=== PATIENT | female | born 1945 | race Caucasian/White ===

== ENCOUNTER 2018-04-14 06:24 | Day surgery (SDC) | payer MEDICARE ==
[2018-04-11 15:24] LABS: Urine Appearance CLOUDY; Urine Bilirubin NEGATIVE (NEG); Urine Blood NEGATIVE (NEG); Urine Color YELLOW; Urine Glucose NEGATIVE (NEG); Urine Protein NEGATIVE (NEG); Urine Urobilinogen 0.2 mg/dL (0.2-1.0); Urine pH 5.5 (5.0-7.0)
[2018-04-11 15:36] LABS: Urine Microscopic Reflex ORDER UMIC
[2018-04-11 15:49] LABS: Absolute Lymphocytes (CBC) 0.8 K/uL (0.7-4.9); Absolute Monocytes 0.5 K/uL (0.1-1.3); Absolute Neutrophil 3.4 K/uL (1.8-8.0); Basophils % 0.7 % (0-1.3); Eosinophils % 3.6 % (0-4.4); Hematocrit 41.3 % (36.0-45.0); Lymphocytes % 17.3 % (15.3-44.8); MPV 9.3 fL (7.6-11.3); Monocytes % 9.5 % (3.3-12.3); RBC Red Blood Cell Count 4.48 M/uL (3.86-4.86)
[2018-04-11 15:53] LABS: Protime INR 1.05
[2018-04-11 16:32] LABS: Urine Bacteria 20-50 /HPF (<20); Urine Culture Reflex Order REFLEXED; Urine RBC <5 /HPF (NONE SEEN)
[2018-04-14] MEDS ORDERED: Ringers Lactate 1,000 ML IV ONE ×2 (06:41→10:12)
[2018-04-14] MEDS ORDERED: SCOPOLAMINE HYDROBROMIDE PATCH TD ONE (06:41)
[2018-04-14] MEDS ORDERED: LIDOCAINE 1% MPF 5 ML VIAL ONE (06:55)
[2018-04-14] MEDS ORDERED: NA CHLORIDE 0.9% 100 ML IV ONE (07:08)
[2018-04-14] MEDS ORDERED: PROPOFOL 200 MG/20 ML VIAL IV ONE (07:08)
[2018-04-14] MEDS ORDERED: NA CHLORIDE 0.9% 1,000 ML ONE (07:08)
[2018-04-14] MEDS ORDERED: CEFAZOLIN SODIUM 1 GM/VIAL ONE ×2 (07:09→10:58)
[2018-04-14] MEDS ORDERED: ROCURONIUM 50 MG/5 ML VIAL IV ONE (07:09)
[2018-04-14] MEDS ORDERED: LIDOCAINE 2% MPF 5 ML VIAL ONE (07:09)
[2018-04-14] MEDS ORDERED: VASOPRESSIN 20 UNIT/ML VIAL ONE (07:09)
[2018-04-14] MEDS ORDERED: FENTANYL CITR 250 MCG/5 ML ONE (07:10)
[2018-04-14] MEDS ORDERED: ONDANSETRON 4 MG/2 ML VIAL ONE ×2 (07:12→10:58)
[2018-04-14] MEDS: CEFAZOLIN/SWI 1gm 2 GM/20 ML SYR ONE ×3 (07:16→07:31)
[2018-04-14] MEDS ORDERED: EPHEDRINE SULF 50 MG/ML VIAL ONE (07:58)
[2018-04-14] MEDS ORDERED: LIDOCAINE 1.5% W/EPI AMP 5 ML ONE (08:08)
[2018-04-14] MEDS ORDERED: GLYCOPYRROLATE 0.2 MG/ML SYR ONE ×2 (08:22→08:23)
[2018-04-14] MEDS ORDERED: NEOSTIGMINE 1 MG/ML -10 ML VIAL ONE (10:56)
[2018-04-14] MEDS ORDERED: HYDROMORPHONE HCL 1 MG/ML INJ IV PRN (11:48)
[2018-04-14] MEDS ORDERED: ACETAMINOPHEN 500 MG TAB PO PRN (11:48)
[2018-04-14] MEDS ORDERED: PROMETHAZINE 25 MG/ML VIAL IV PRN (11:48)
--- NOTE | 2018-04-14 12:00 | P.BOP ---
Preoperative diagnosis: stg 3 Incomplete uterovag prolapse/post enterocele/ rectocele/occult MITCHELL Postoperative diagnosis: perineocele Primary procedure: ant repair arden SSLF colpopexy w Uphold/post enterocele/ rectocele repair Secondary procedure: perineorrhaphy, TVT-O cysto Manager College: [employer] Estimated blood loss: 100 Specimen: none Findings: 0/+3/+5/6/thin/7/0/+3/+4 Anesthesia: General Complications: None Drain(s): Urinary catheter Implants: uphold, tvt-o Fluids & blood products: none Transferred to: Recovery Room Condition: Good
[2018-04-14 12:20] VITALS: O2SAT 96
[2018-04-14 13:31] VITALS: BMI 27.4
[2018-04-14] MEDS: Ringers Lactate 1,000 ML IV SCH (16:36)
[2018-04-15] MEDS: Ringers Lactate 1,000 ML IV SCH (00:10)
[2018-04-15] MEDS ORDERED: LEVOTHYROXINE SOD 0.1 MG TAB PO SCH (06:00)
[2018-04-15 06:36] LABS: Absolute Lymphocytes (CBC) 0.7 K/uL (0.7-4.9); Absolute Monocytes 0.6 K/uL (0.1-1.3); Basophils % 0.3 % (0-1.3); Eosinophils % 0.5 % (0-4.4); Hematocrit 37.5 % (36.0-45.0); Lymphocytes % 9.5 % (15.3-44.8); MPV 9.2 fL (7.6-11.3); Monocytes % 8.4 % (3.3-12.3); RBC Red Blood Cell Count 4.11 M/uL (3.86-4.86)
[2018-04-15 07:51] VITALS: BP 117/76
--- NOTE | 2018-04-15 08:03 | OP ---
Date of Procedure: 04/14/2018 Surgeon: Jaclyn Navarro MD Preoperative Diagnoses: Stage III anterior wall prolapse, apical level 1 prolapse. There is no sign ificant defect, rectocele, occult stress urinary incontinence. Postoperative Diagnoses: Stage III anterior wall prolapse, apical level 1 prolapse. There is no sig nificant defect, rectocele, occult stress urinary incontinence, posterior enterocele. Anesthesia: General anesthesia with LMA. Specimens: None. Complications: None. Procedures Performed: 1.Anterior repair with synthetic graft augmentation with Uphold mesh. 2.Bilateral sacrospinous ligament fixation colpopexy with the same. 3.Posterior enterocele repair and perineal body repair (perineorrhaphy). 4.Mid urethral sling and cystoscopy. TVT-O was placed. Findings: POP-Q is 0, +3, +5, 6 cm, then 7 to 8 cm; 0, +3, +4. The patient with significant level 1 prolapse. The uterus small, vaginal lining moderate. After repair, point BA was -3, point C was at -7. At the end of the case, the patient had a small hematoma collected underneath the graft and the anterior wall closure. The patient had a cystoscopy that was performed and the procedure showed normal patent bilateral uret ers. No evidence of foreign body or suture was seen. Right above the trigone, there was a small area that appeared to be slightly with defect which appear ed to be the closure of the bladder with a 3-0 Vicryl pursestring to reduce the bladder, but no evide nce of any diverticula or any other concerning bladder findings. The patient is a 72-year-old patient seen for vaginal bulge symptoms, referred by her primary care. She had a full evaluation in the office. Discussed about pessary and surgery. All the surgery mater ials were reviewed with the patient including graft augmentation materials, biologic and synthetic darya th. Abdominal and vaginal surgeries both discussed after the patient declined the use of pessary. Description Of Procedure: Cystoscopy was performed and only trabeculations were seen. The patient w as kept on trimethoprim as a prophylactic antibiotic. She went on to have urodynamic studies and that showed low midurethral closure pressure, so mid ureth ral sling given the fact that her point AA was significantly displaced. The patient was counseled th at if she had prolapse or eruption that she could potentially have overt stress urinary incontinence. Once the patient was counseled, she preferred to have the sling placed, so we discussed about the t ransobturator sling and this was planned. After the patient was given 2 g of Ancef, she was brought back to the OR, placed in a supine fashion on the operating table. After general anesthesia was given, she was placed in dorsal lithotomy posit ion using Anil stirrups. Positioning was checked. Arms were laid on the side boards. After the lo wer abdomen, vulva, vagina, and perineum were prepped and draped in a sterile fashion, Bhagat was plac ed to drain the bladder and clamped with a Joy and retracted superiorly. The anterior vaginal wall was grasped with 2 Allis' in the midline, right above the level of the cervix and right below the ur ethrovesical junction. Then, dilute vasopressin 20 units in 50 cc of normal saline was taken. This is injected in the midline and off to the sides at a depth that would pass the endopelvic fascia. On ce this was done, a 15 blade was used to make an incision. This incision was extended superiorly and inferiorly with the Metzenbaum scissors and laterally dissection was performed taking the bladder of f the endopelvic fascia and the vaginal epithelium and subepithelium. This was done till I got to th e sulci on both sides. The paravaginal space was entered. Then pararectal space was entered. Ischi al spine was palpated and sacrospinous ligament cleaned up on the right side, then on the left side, without any problems. Then, I went ahead and dissected the bladder off the cervix and the bladder al l the way close to the level of the bladder neck. Here at the bladder neck, two plication 3-0 Vicryl sutures were placed to bring the lateral fascia together and buttressed in the midline. Then, the U phold was taken. The arms were placed 2 cm medial and posterior to the ischial spine on the sacrospi nous ligament, first on the left side and then on the right side, without any problems, but two passe s were taken on the left side. So, the first bite was flimsy bite into the ligament. Once there was excellent placement, the proximal part of the graft was attached to the cervix with a central 2-0 PD S and then 2 lateral PDS sutures. Then, the distal-most part of the graft was sutured here on to the Joy plication stitches with 3-0 Vicryl. This was laid out flat. Then, the vaginal closure was pe rformed by placing another suture bringing the subcutaneous tissues together right on top of the ernst t incision to avoid exposure, and the vaginal epithelium was not trimmed and closed out with a 2-0 Vi cryl in a continuous running locked fashion till the complete tension was done, and there was excelle nt support. This was the end of the procedure for the anterior repair. Cystoscopy was performed wit h a 17-Greenlandic sheath, 30-degree lens, and normal saline. There were excellent streams of urine from both ureteric orifices. No foreign body in the bladder. The scope was removed. Bhagat was replaced. The perineorrhaphy was done. Rectocele repair and perineorrhaphy incisions were made. First, triangular incision on the perineum going all the way from one side of the defect to the other. The perineal body had been disrupted, an d there was no evidence of any reconnection there. Getting access to the posterior compartment from here, dissection was carried all the way to the apex keeping away 2 cm short of the apex. Then, the perineal body was dissected. The posterior midline wall was opened up and the rectovaginal septum wa s from the subepithelium and epithelium, and this was taken down and retracted all the way to the lateral sulci and then all the way to the apex where there the enterocele was isolated and it was closed with the help of a pursestring 3-0 Vicryl suture x2. Once this was nicely held together, then sutures were placed to bring the tissue back together. Three plicating sutures were placed from [id number] in the midline posterior to bring the rectovaginal septum tissues together. Then fiona ing of the vaginal epithelium was done, half a centimeter on both sides. The perineal body was clear ly dissected out at the level of the vestibule. The Bartholin's glands were unremarkable. The closu re was done with the help of interrupted 2-0 Vicryl sutures x3 on layer #1, then layer #2 was placed where three more sutures were placed. Then, 3-0 Vicryl suture was taken from the inferior most part of the apical part of the incision to do a subcutaneous closure all the way to the level of the perin eum and vestibule. The fascia was closed with the help of 2-0 Vicryl in a continuous running locked fashion. Rectal exam was performed. No evidence of any injury here. The Bhagat was removed. Cystos copy was performed after the sling was done. Mid urethral area was injected with dilute vasopressin on both sides. After the 15 blade was used to make a 1 cm incision, dissection was carried down with the tip of the Metzenbaum scissors to get up there and perforate the obturator membrane. Once this was perforated, they were taken down both sides and the wing guides were placed easily. The spikes w ere passed through the same incision and came out of the exit points marked for the exit of the spike s, 2 cm lateral and 1 cm above the horizontal plane. The wing guide was passed through the same trac k. Then, the spike was passed at a 40 degree angle to the ipsilateral shoulder, hugging the inferior pubic ramus. The spike was passed on top of the wing guide and pulled out of the exit point exactly marked on the right and then left. The sling was tensioned with the help of Metzenbaum scissors und er the urethra. The closure here was 3-0 Vicryl in a continuous running locked fashion. Bhagat was r emoved. Cystoscopy was performed. No evidence of any trauma to the urethra, bladder, or ureters. N o foreign body in the bladder. The bladder was drained. Instrument, needle, and sponge counts x3 we re done and were correct at the end of the case. The patient tolerated the procedure well and she wi ll follow up with me in 1 week. WALTER/LEVI Voice ID: [id number] Report ID: [id number]
[2018-04-15 08:16] VITALS: TEMP 97.8
[2018-04-15] MEDS ORDERED: TRIMETHOPRIM 100 MG PO SCH (09:00)
[2018-04-15] MEDS ORDERED: LISINOPRIL 10 MG TAB PO SCH (09:00)
== END 2018-04-15 12:30 | disposition home or self-care (01) ==
LOC: OR 06:24 → 2ND-WC 11:55 → OR 04-15 12:30
PROVIDERS: ATTEND Obstetrics & Gynecology
PROC: 0JUC0JZ Supplement of Pelvic Region Subcutaneous Tissue and Fascia with Synthetic Substitute, Open Approach (ICD-10-PCS; 2018-04-14)
PROC: 0JQC0ZZ Repair Pelvic Region Subcutaneous Tissue and Fascia, Open Approach (ICD-10-PCS; 2018-04-14)
PROC: 0WQNXZZ Repair Female Perineum, External Approach (ICD-10-PCS; 2018-04-14)
PROC: 0TSD0ZZ Reposition Urethra, Open Approach (ICD-10-PCS; 2018-04-14)
PROC: 0USG7ZZ Reposition Vagina, Via Natural or Artificial Opening (ICD-10-PCS; 2018-04-14)
PROC: 0UQF0ZZ Repair Cul-de-sac, Open Approach (ICD-10-PCS; principal; 2018-04-14 07:30)
DX: N81.2 Incomplete uterovaginal prolapse (principal); N39.3 Stress incontinence (female) (male); N81.81 Perineocele; I10 Essential (primary) hypertension; E05.90 Thyrotoxicosis, unspecified without thyrotoxic crisis or storm; Z88.2 Allergy status to sulfonamides
CPT/HCPCS: 57265; 57267; 57288; 57282; 87088; 85025 ×2; 87086; 80048; 36415 ×2; 86900; 86850; 85610; 86901; 85730; J2704; J2710; J2550 ×2; J3010; J1170; J0690 ×3; J7030; J2405 ×2; 81003; 81015; J2001

== ENCOUNTER 2019-09-11 09:54 | Observation (INO) | payer MEDICARE, OTHER ==
[2019-09-11 10:51] LABS: Absolute Lymphocytes (CBC) 0.8 K/uL (0.7-4.9); Basophils % 0.7 % (0-1.3); Hematocrit 41.5 % (36.0-45.0); Lymphocytes % 19.3 % (15.3-44.8); MPV 9.2 fL (7.6-11.3); RBC Red Blood Cell Count 4.59 M/uL (3.86-4.86)
[2019-09-11] MEDS ORDERED: ASPIRIN 81 MG CHEWABLE TABLET ONE (11:10)
[2019-09-11 11:13] LABS: BUN Blood Urea Nitrogen 15 mg/dL (7-18); Bicarbonate 29 mmol/L (21-32); Glucose Level 107 mg/dL (74-106); Magnesium 2.3 mg/dL (1.8-2.4); NT PRO-BNP 80 pg/mL (<450); Potassium 3.9 mmol/L (3.5-5.1); Sodium Level 145 mmol/L (136-145); Troponin (Emerg Dept Use Only) < 0.02 ng/mL (0.0-0.045)
[2019-09-11] MEDS ORDERED: DILTIAZEM HCL 60 MG TAB PO ONE (11:15)
--- NOTE | 2019-09-11 11:39 | EDPHYS ---
Physician Documentation [facility] Name: Marylou Bonilla Age: 73 yrs Sex: Female : 1945 Arrival Date: 09/11/2019 Time: 10:02 Bed 8 Private MD: ED Physician Eze Zavala HPI: 09/10 10:15 This 73 yrs old Female presents to ER via EMS with complaints of palpitations.rn 10:15 The patient presents with a history of heart racing. Onset: The symptoms/episode rn began/occurred this morning. Modifying factors: The symptoms are aggravated by exertion. Associated signs and symptoms: Pertinent positives: lightheadedness, Pertinent negatives: chest pain. Severity of symptoms: At their worst the symptoms were moderate in the emergency department the symptoms have improved. The patient has not experienced similar symptoms in the past. Reports woke up to use bathroom, felt palpitations, fine last night when went to bed, no fever/chest pain/syncope, + lightheaded. Never happened before, no recent medication changes. . Historical: - Allergies: 10:12 No Known Allergies; ph - PMHx: 10:12 Hypertension; Hypothyroidism; ph - PSHx: 10:12 Cholecystectomy; ph - Immunization history:: Adult Immunizations unknown. - Family history:: not pertinent. - Social history:: Smoking status: Patient denies any tobacco usage or history of. - Hospitalizations: : No recent hospitalization is reported. ROS: 10:15 Constitutional: Negative for fever, chills, and weight loss, Eyes: Negative for injury, rn pain, redness, and discharge, Neck: Negative for injury, pain, and swelling, Cardiovascular: Negative for chest pain and edema, Respiratory: Negative for shortness of breath, cough, wheezing, and pleuritic chest pain, Abdomen/GI: Negative for abdominal pain, nausea, vomiting, diarrhea, and constipation, MS/Extremity: Negative for injury and deformity, Skin: Negative for injury, rash, and discoloration, Neuro: Negative for headache, weakness, numbness, tingling, and seizure. Exam: 10:15 Constitutional: This is a well developed, well nourished patient who is awake, alert, rn and in no acute distress. Head/Face: Normocephalic, atraumatic. Eyes: Pupils equal round and reactive to light, extra-ocular motions intact. Lids and lashes normal. Conjunctiva and sclera are non-icteric and not injected. Cornea within normal limits. Periorbital areas with no swelling, redness, or edema. Cardiovascular: Tachycardic, irregular Respiratory: speaking full sentences. No increased work of breathing, no retractions or nasal flaring. Abdomen/GI: soft, non-tender MS/ Extremity: Pulses equal, no cyanosis. Neuro: Awake and alert, GCS 15, oriented to person, place, time, and situation. Cranial nerves II-XII grossly intact. Motor strength 5/5 in all extremities. Sensory grossly intact. Cerebellar exam normal. Normal gait. 14:05 ECG was reviewed by the Attending Physician. rn Vital Signs: 10:06 BP 128 / 108; Pulse 157; Resp 18; Temp 97.7; Pulse Ox 96% on R/A; ph 10:11 Pulse 84; ph 10:47 BP 132 / 75; Pulse 67; Resp 15; Temp 97.5(TE); Pulse Ox 97% on R/A; mh5 11:30 BP 138 / 78; Pulse 62; Resp 18; Pulse Ox 99% on R/A; ph 12:32 BP 137 / 72; Pulse 58; Resp 18; Pulse Ox 98% on R/A; ph 13:00 BP 175 / 77; Pulse 83; Resp 15; Pulse Ox 98% ; sv 13:45 BP 143 / 73; Pulse 59; Resp 13; Pulse Ox 95% ; sv 14:56 BP 136 / 59; Pulse 58; Resp 18; Temp 97.8; Pulse Ox 96% on R/A; ph MDM: 10:03 Patient medically screened. rn 11:37 Differential diagnosis: arrythmia, dehydration, stress disorder, new onset afib. Data rn reviewed: vital signs, nurses notes, lab test result(s), EKG, radiologic studies, and as a result, I will admit patient. Counseling: I had a detailed discussion with the patient and/or guardian regarding: the historical points, exam findings, and any diagnostic results supporting the discharge/admit diagnosis, lab results, radiology results, the need for further work-up and treatment in the hospital. Admission orders: after a detailed discussion of the patient's condition and case, the admit orders are written by me. ED course: Pt with new onset afib, converted to sinus after single diltiazem dose, followed by PO, admitted to Dr. Melendrez for new onset afib and workup with cardiology consult. . 09/10 10:03 Order name: Basic Metabolic Panel; Complete Time: 11:35 rn 09/10 10:03 Order name: CBC with Diff; Complete Time: 11:00 rn 09/10 10:03 Order name: Magnesium; Complete Time: 11:35 rn 09/10 10:03 Order name: NT PRO-BNP; Complete Time: 11:35 rn 09/10 10:03 Order name: Troponin (emerg Dept Use Only); Complete Time: 11:35 rn 09/10 10:04 Order name: TSH; Complete Time: 11:35 rn 09/10 10:04 Order name: T4 Free; Complete Time: 11:35 rn 09/10 13:06 Order name: CKMB Creatine Kinase MB [facility] 09/10 13:06 Order name: CKMB Creatine Kinase MB [facility] 09/10 13:06 Order name: CKMB Creatine Kinase MB [facility] 09/10 13:06 Order name: CKMB Creatine Kinase MB [facility] 09/10 13:06 Order name: Comprehensive Metabolic Panel [facility] 09/10 13:07 Order name: Comprehensive Metabolic Panel [facility] 09/10 13:07 Order name: Creatine Phosphokinase [facility] 09/10 10:03 Order name: XRAY Chest (1 view); Complete Time: 12:09 rn 09/10 10:03 Order name: EKG; Complete Time: 10:04 09/10 12:25 Order name: Diet Regular; Complete Time: 12:25 09/10 13:06 Order name: Heart Healthy [facility] 09/10 13:07 Order name: Creatine Phosphokinase [facility] 09/10 13:07 Order name: Creatine Phosphokinase [facility] 09/10 13:07 Order name: Creatine Phosphokinase [facility] 09/10 13:07 Order name: Lipid Profile [facility] 09/10 13:07 Order name: Lipid Profile [facility] 09/10 13:07 Order name: CONS Physician Consult [facility] 09/10 13:07 Order name: Thyroid Stimulating Hormone [facility] 09/10 13:07 Order name: Troponin I [facility] 09/10 13:07 Order name: Troponin I [facility] 09/10 13:07 Order name: Echo with Doppler [facility] 09/10 10:03 Order name: Cardiac monitoring; Complete Time: 10:45 rn 09/10 10:04 Order name: EKG - Nurse/Tech; Complete Time: 10:45 rn 09/10 10:04 Order name: IV Saline Lock; Complete Time: 10:23 rn 09/10 10:04 Order name: Labs collected and sent; Complete Time: 10:45 rn 09/10 10:04 Order name: O2 Per Protocol; Complete Time: 12:50 rn 09/10 10:04 Order name: O2 Sat Monitoring; Complete Time: 12:50 rn EC:05 Rate is 64 beats/min. Rhythm is regular. QRS [place] is Normal. ME interval is normal. QRS rn interval is normal. QT interval is normal. No Q waves. T waves are Normal. No ST changes noted. Clinical impression: Normal ECG. Interpreted by me. Reviewed by me. Administered Medications: 11:20 Drug: Aspirin 81 mg Route: PO; ph 12:50 Follow up: Response: No adverse reaction ph 12:15 Drug: Diltiazem 30 mg Route: PO; ph 12:50 Follow up: Response: No adverse reaction ph Disposition: 09/11/19 11:38 Hospitalization ordered by Gallo Melendrez for Inpatient Admission. Preliminary diagnosis is Unspecified atrial fibrillation. - Bed requested for Telemetry/MedSurg (Inpatient). - Status is Inpatient Admission. ph - Condition is Stable. - Problem is new. - Symptoms have improved. Signatures: Dispatcher [employer] EDID Cynthia Godwin RN RN dw Nieto, Roman, MD MD rn Hall, Patricia, RN RN ph Corrections: (The following items were deleted from the chart) 14:19 11:38 Hospitalization Ordered by Gallo Melendrez MD for Inpatient Admission. Preliminary dw diagnosis is Unspecified atrial fibrillation. Bed requested for Telemetry/MedSurg (Inpatient). Status is Inpatient Admission. Condition is Stable. Problem is new. Symptoms have improved. rn 16:00 14:19 09/11/2019 11:38 Hospitalization Ordered by Gallo Melendrez MD for Inpatient ph Admission. Preliminary diagnosis is Unspecified atrial fibrillation. Bed requested for Telemetry/MedSurg (Inpatient). Status is Inpatient Admission. Condition is Stable. Problem is new. Symptoms have improved. dw
--- NOTE | 2019-09-11 11:39 | ER ---
Nurse's Notes [facility] Name: Marylou Bonilla Age: 73 yrs Sex: Female : 1945 Arrival Date: 09/11/2019 Time: 10:02 Bed 8 Private MD: Diagnosis: Unspecified atrial fibrillation Presentation: 09/10 10:06 Chief complaint: EMS states: Pt c/o palpitations, initial rhythm A-fib/A-flutter w/ ph rate in 160s, BP stable, 18 G IV established, 12.5 Cardizem administered, rhythm changed to A-fib w/ rate 130s to 140s, BP 140/72, pt courtney chest pain or SOB, no hx of a-fib. Coronavirus screen: Patient denies a cough. Patient denies shortness of breath or difficulty breathing. Patient denies measured and/or subjective temperature greater than 100.4F prior to today's visit. Patient denies travel on a cruise ship or to a country the [facility] currently lists as an affected area. Patient denies contact with known and/or suspected case of COVID-19. Ebola Screen: No symptoms or risks identified at this time. Initial Sepsis Screen: Does the patient meet any 2 criteria? No. Patient's initial sepsis screen is negative. Does the patient have a suspected source of infection? No. Patient's initial sepsis screen is negative. Risk Assessment: Do you want to hurt yourself or someone else? Patient reports no desire to harm self or others. Onset of symptoms was September 11, 2019. 10:06 Method Of Arrival: EMS ph 10:06 Acuity: PIERO 2 ph Historical: - Allergies: 10:12 No Known Allergies; ph - PMHx: 10:12 Hypertension; Hypothyroidism; ph - PSHx: 10:12 Cholecystectomy; ph - Immunization history:: Adult Immunizations unknown. - Family history:: not pertinent. - Social history:: Smoking status: Patient denies any tobacco usage or history of. - Hospitalizations: : No recent hospitalization is reported. Screenin:11 Abuse screen: Denies threats or abuse. Denies injuries from another. Nutritional ph screening: No deficits noted. Tuberculosis screening: No symptoms or risk factors identified. Fall Risk None identified. Assessment: 10:15 General: Appears in no apparent distress. comfortable, well groomed, Behavior is calm, ph cooperative, appropriate for age, Denies fever, feeling ill. Pain: Denies pain. Neuro: Level of Consciousness is awake, alert, obeys commands, Oriented to person, place, time, situation, Denies weakness dizziness. Cardiovascular: Reports palpitations, MASSAGE COORDINATOR, denies at this time, HR now 78 bpm Denies chest pain, lightheadedness, nausea, shortness of breath, Capillary refill < 3 seconds in bilateral fingers Patient's skin is warm and dry. Respiratory: Airway is patent Respiratory effort is even, unlabored, Respiratory pattern is regular, symmetrical. GI: No signs and/or symptoms were reported involving the gastrointestinal system. Derm: Skin is intact, is healthy with good turgor, Skin is clammy. 11:30 Reassessment: Patient appears in no apparent distress at this time. Patient and/or ph family updated on plan of care and expected duration. Pain level reassessed. Patient is alert, oriented x 3, equal unlabored respirations, skin warm/dry/pink. 12:20 Reassessment: Patient appears in no apparent distress at this time. Patient and/or ph family updated on plan of care and expected duration. Pain level reassessed. Patient is alert, oriented x 3, equal unlabored respirations, skin warm/dry/pink. Hospitalist at bedside. 13:30 Reassessment: Patient appears in no apparent distress at this time. Patient and/or ph family updated on plan of care and expected duration. Pain level reassessed. Patient is alert, oriented x 3, equal unlabored respirations, skin warm/dry/pink. 14:45 Reassessment: Patient appears in no apparent distress at this time. Patient and/or ph family updated on plan of care and expected duration. Pain level reassessed. Patient is alert, oriented x 3, equal unlabored respirations, skin warm/dry/pink. Attempted to call report to 2nd floor, placed on hold > 5 min. Vital Signs: 10:06 BP 128 / 108; Pulse 157; Resp 18; Temp 97.7; Pulse Ox 96% on R/A; ph 10:11 Pulse 84; ph 10:47 BP 132 / 75; Pulse 67; Resp 15; Temp 97.5(TE); Pulse Ox 97% on R/A; 5 11:30 BP 138 / 78; Pulse 62; Resp 18; Pulse Ox 99% on R/A; ph 12:32 BP 137 / 72; Pulse 58; Resp 18; Pulse Ox 98% on R/A; ph 13:00 BP 175 / 77; Pulse 83; Resp 15; Pulse Ox 98% ; sv 13:45 BP 143 / 73; Pulse 59; Resp 13; Pulse Ox 95% ; sv 14:56 BP 136 / 59; Pulse 58; Resp 18; Temp 97.8; Pulse Ox 96% on R/A; ph ED Course: 10:02 Patient arrived in ED. rn 10:03 Eze Zavala MD is Attending Physician. rn 10:06 Rylie Curtis, VICKIE is Primary Nurse. ph 10:11 Triage completed. ph 10:12 Patient has correct armband on for positive identification. Placed in gown. Bed in low ph position. Call light in reach. Side rails up X2. vehicle monitor technician on. Pulse ox on. NIBP on. Door closed. Noise minimized. Warm blanket given. 10:13 Arm band placed on Patient placed in an exam room, on a stretcher, on vehicle monitor technician, ph on pulse oximetry. 10:44 XRAY Chest (1 view) In Process Unspecified. EDMS 10:44 T4 Free Sent. mh5 10:44 TSH Sent. mh5 10:44 Basic Metabolic Panel Sent. mh5 10:44 CBC with Diff Sent. mh5 10:44 Magnesium Sent. mh5 10:45 NT PRO-BNP Sent. mh5 10:45 Troponin (emerg Dept Use Only) Sent. mh5 10:46 Initial lab(s) drawn, by ma, sent to lab. Maintain EMS IV. Dressing intact. mh5 11:38 Gallo Melendrez MD is Hospitalizing Provider. rn 14:53 Patient admitted, IV remains in place. ph 14:54 No provider procedures requiring assistance completed. ph Administered Medications: 11:20 Drug: Aspirin 81 mg Route: PO; ph 12:50 Follow up: Response: No adverse reaction ph 12:15 Drug: Diltiazem 30 mg Route: PO; ph 12:50 Follow up: Response: No adverse reaction ph Outcome: 11:38 Decision to Hospitalize by Provider. rn 14:57 Admitted to Tele accompanied by tech, via wheelchair, room 222. ph 14:57 Condition: stable 14:57 Instructed on the need for admit. 16:00 Patient left the ED. ph Signatures: Dispatcher [employer] Rossana Schaffer RN RN sv Nieto, Roman, MD MD rn Hall, Patricia, RN RN ph Martinez, Maria [facility]
--- NOTE | 2019-09-11 11:52 | RAD REPORT ---
EXAM DESCRIPTION: Marcus Single View09/11/2019 10:44 am CLINICAL HISTORY: Palpitations COMPARISON: 2007 FINDINGS: The lungs appear clear of acute infiltrate. The heart is normal size Scoliosis is again demonstrated IMPRESSION: No acute abnormalities displayed
[2019-09-11] MEDS ORDERED: ONDANSETRON 4 MG/2 ML VIAL IV PRN (13:02)
[2019-09-11] MEDS ORDERED: ACETAMINOPHEN 500 MG TAB PO PRN (13:02)
--- NOTE | 2019-09-11 13:02 | P.HP ---
Certification for Inpatient Patient admitted to: Observation With expected LOS: <2 Midnights Practitioner: I am a practitioner with admitting privileges, knowledge of patient current condition, hospital course, and medical plan of care. Services: Services provided to patient in accordance with Admission requirements found in Title 42 Section 412.3 of the Code of Federal Regulations Patient History Date of Service: 09/11/19 Reason for admission: Palpitation History of Present Illness: 73 yrs old Female with past medical history of hypertension, hypothyroidism admitted with complaints of palpitations. The patient presents with a history of heart racing which started all of a sudden. The symptoms are aggravated by exertion. Associated with lightheadedness, Denies any chest pain . Denies any fever or chills No nausea vomiting or diarrhea No previous history of AFib or CAD . Allergies Sulfa (Sulfonamide Antibiotics) Allergy (Verified 04/11/18 14:40) Nausea/Vomiting Home medications list reviewed: Yes Home Medications: Levothyroxine [Synthroid*] 100 mcg PO [id number] 06/09/16 lisinopriL [Lisinopril] 30 mg PO DAILY 06/09/16 Estrogens,Conj Cream [Premarin 0.625MG/Gm] 1 appl VAG M,W,F 04/11/18 Trimethoprim 100 mg PO DAILY 04/11/18 Vit C/E/Zn/Coppr/Lutein/Zeaxan [Preservision Areds 2 Softgel] 1 each PO DAILY 04/11/18 Trimethoprim 100 mg PO DAILY #5 tablet 04/15/18 - Past Medical/Surgical History Diabetic: No Past Medical History: Reviewed- Non-Contributory -: Hypertension -: Hypothyroidism Past Surgical History: Reviewed- Non-Contributory -: cholecystectomy 2007 -: arden cataracts 2006 -: tubal ligation many yrs ago - Family History Family History: Reviewed- Non-Contributory - Family History Brother -: Hypertension Notes: mother had abd cancer - Social History Smoking Status: Never smoker Alcohol use: No CD- Drugs: No Caffeine use: Yes Review of Systems 10-point ROS is otherwise unremarkable Physical Examination - Vital Signs Temperature: 98.3 F Blood Pressure: 148/78 Pulse: 68 Respirations: 18 - Physical Exam General: Alert, In no apparent distress, Oriented x3 HEENT: Atraumatic, Normocephalic Neck: Supple, 2+ carotid pulse no bruit Respiratory: Clear to auscultation bilaterally, Normal air movement Cardiovascular: Regular rate/rhythm, Normal S1 S2 Capillary refill: <2 Seconds Gastrointestinal: Soft and benign, W/out hepatosplenomegaly Musculoskeletal: No clubbing, No swelling Integumentary: No rashes Neurological: Normal speech, Normal strength at 5/5 x4 extr Lymphatics: No axilla or inguinal lymphadenopathy - Studies Laboratory Data (last 24 hrs) 09/11/19 10:40: WBC 4.0 L, Hgb 14.2, Hct 41.5, Plt Count 220 09/11/19 10:40: Sodium 145, Potassium 3.9, BUN 15, Creatinine 0.86, Glucose 107 H, Magnesium 2.3 Assessment and Plan - Problems (Diagnosis) (1) Atrial fibrillation with RVR Current Visit: Yes Status: Acute (2) Paroxysmal A-fib Current Visit: Yes Status: Acute - Plan AFib with RVR Paroxysmal atrial fibrillator Hypertension Hypothyroid is Plan Monitor closely under telemetry At the time of interview patient is converted to sinus rhythm Received 1 dose of Cardizem bolus Will start on p.o.. Cardizem Get a TSH level Get an echocardiogram Trend cardiac enzymes Cardiology consult Start on aspirin GI/DVT prophylaxis Advanced directives full code - Advance Directives Does patient have a Living Will: No Does patient have a Durable POA for Healthcare: No Time Spent Managing Pts Care (In Minutes): 45
[2019-09-11 16:46] VITALS: BMI 27.9
[2019-09-11] MEDS ORDERED: DILTIAZEM HCL 60 MG TAB PO SCH (18:00)
[2019-09-11] MEDS: DILTIAZEM HCL 60 MG TAB PO SCH ×2 (18:49→23:59)
[2019-09-11 19:07] LABS: CKMB Creatine Kinase MB 1.1 ng/mL (0.3-3.6); Creatine Phosphokinase 62 U/L (26-192); HDL Cholesterol 51 mg/dL (40-60); LDL Cholesterol, Calculated 108 (<130); Troponin I < 0.02 ng/mL (0.0-0.045)
[2019-09-12 01:03] LABS: Urine Appearance CLEAR; Urine Bilirubin NEGATIVE (NEG); Urine Blood NEGATIVE (NEG); Urine Color YELLOW; Urine Glucose NEGATIVE (NEG); Urine Microscopic Reflex NO UMIC; Urine Protein NEGATIVE (NEG); Urine Specific Gravity 1.015 (1.005-1.030)
[2019-09-12 03:39] LABS: Absolute Lymphocytes (CBC) 1.1 K/uL (0.7-4.9); Hematocrit 40.2 % (36.0-45.0); Lymphocytes % 22.7 % (15.3-44.8); MPV 9.2 fL (7.6-11.3)
[2019-09-12 04:00] LABS: Albumin 3.6 g/dL (3.4-5.0); Bilirubin Total 0.6 mg/dL (0.2-1.0); Magnesium 2.3 mg/dL (1.8-2.4); Phosphorus 4.4 mg/dL (2.5-4.9); Potassium 4.6 mmol/L (3.5-5.1); Protein, Total 7.5 g/dL (6.4-8.2)
[2019-09-12 04:05] LABS: CKMB Creatine Kinase MB < 1.0 ng/mL (0.3-3.6); Creatine Phosphokinase 62 U/L (26-192); Troponin I < 0.02 ng/mL (0.0-0.045)
[2019-09-12] MEDS: DILTIAZEM HCL 60 MG TAB PO SCH ×2 (06:00→12:00)
[2019-09-12] MEDS ORDERED: ASPIRIN EC 81 MG TAB PO SCH (09:00)
[2019-09-12 09:30] VITALS: TEMP 97.5
[2019-09-12 09:56] VITALS: O2SAT 97
--- NOTE | 2019-09-12 10:17 | EKG ---
Test Date: 2019-09-11 Test Time: 10:16:19 Garbage Truck Driver: MARIS MEASUREMENT RESULTS: Intervals: Rate: 64 MD: 172 QRSD: 74 QT: 396 QTc: 408 Josephine: P: 53 MD: 172 QRS: 41 T: 87 INTERPRETIVE STATEMENTS: Normal sinus rhythm Normal ECG Compared to ECG 04/21/2007 14:12:46 Sinus bradycardia no longer present Electronically Signed On 09-12-19 10:14:06 CDT by Estrada Ham
--- NOTE | 2019-09-12 11:21 | PN ---
Date of Progress Note: 09/12/2019 Subjective: Ms. Bonilla was seen by Dr. Hutchinson yesterday for new-onset atrial fibrillation. She has been taking lisinopril and Synthroid at home. Overnight, she was given Cardizem and aspirin and her rhythm today is normal. Echocardiogram remains pending. TSH is pending. This morning, she is asymp tomatic and in sinus rhythm. She is afebrile. Examination is unchanged. Impression And Plan: New-onset atrial fibrillation that has resolved. I will continue the diltiazem instead of the lisinopril. Continue her Synthroid. Check her TSH. Check the echocardiogram. If t he echocardiogram is normal, she can go home on diltiazem and aspirin. No need for further anticoagu lation. If the echocardiogram is abnormal, we will we re-discuss that. She can go home otherwise fr om my standpoint. I would like to see her in the office. I think she needs to have an outpatient st ress test to evaluate her coronary arteries. I would like her stress test to be a MPI. EMELIA/LEVI Voice ID: [id number] Report ID: [id number]
--- NOTE | 2019-09-12 11:38 | P.DS ---
Admission Date: 09/11/19 Discharge Date: 09/12/19 Disposition: ROUTINE DISCHARGE Discharge Condition: GOOD Reason for Admission: Palpitation - Problems (1) Atrial fibrillation with RVR Status: Acute (2) Paroxysmal A-fib Status: Acute Brief History of Present Illness: 73 yrs old Female with past medical history of hypertension, hypothyroidism admitted with complaints of palpitations. The patient presents with a history of heart racing which started all of a sudden. The symptoms are aggravated by exertion. Associated with lightheadedness, Denies any chest pain . Denies any fever or chills No nausea vomiting or diarrhea No previous history of AFib or CAD . Hospital Course: The patient was admitted and monitored closely under telemetry. She was converted from AFib to sinus rhythm and was in sinus rhythm throughout the hospital course. She received Cardizem initially the bolus dose and continued with p.o. Cardizem. Her antihypertensives change from lisinopril to Cardizem and was continued. TSH was monitored. Cardiology was consulted and recommended continuing Cardizem with outpatient follow up for outpatient stress test. Patient wanted go home and is being discharged home today in a stable condition with advice to follow up with PCP in 1 week and also with Cardiology in 1-2 weeks Vital Signs/Physical Exam: Temp Pulse Resp BP Pulse Ox 97.5 F 56 18 159/68 H 95 09/12/19 08:00 09/12/19 08:00 09/12/19 08:00 09/12/19 08:00 09/12/19 08:00 General: Alert, In no apparent distress HEENT: Atraumatic, Normocephalic Neck: Supple Respiratory: Clear to auscultation bilaterally, Normal air movement Cardiovascular: Normal pulses, Regular rate/rhythm Capillary refill: <2 Seconds Gastrointestinal: Soft and benign, W/out hepatosplenomegaly Musculoskeletal: No clubbing, No swelling Integumentary: No rashes Neurological: Normal speech, Normal strength at 5/5 x4 extr Lymphatics: No axilla or inguinal lymphadenopathy Laboratory Data at Discharge: WBC 5.0 K/uL (4.3-10.9) D 09/12/19 03:12 Hgb 13.5 g/dL (12.0-15.0) 09/12/19 03:12 Hct 40.2 % (36.0-45.0) 09/12/19 03:12 Plt Count 209 K/uL (152-406) 09/12/19 03:12 Sodium 145 mmol/L (136-145) 09/12/19 03:12 Potassium 4.6 mmol/L (3.5-5.1) 09/12/19 03:12 BUN 18 mg/dL (7-18) 09/12/19 03:12 Creatinine 0.92 mg/dL (0.55-1.3) 09/12/19 03:12 Glucose 115 mg/dL (74-106) H 09/12/19 03:12 Phosphorus 4.4 mg/dL (2.5-4.9) 09/12/19 03:12 Magnesium 2.3 mg/dL (1.8-2.4) 09/12/19 03:12 Total Bilirubin 0.6 mg/dL (0.2-1.0) 09/12/19 03:12 AST 19 U/L (15-37) 09/12/19 03:12 ALT 22 U/L (12-78) 09/12/19 03:12 Alkaline Phosphatase 73 U/L (45-117) 09/12/19 03:12 Troponin I < 0.02 ng/mL (0.0-0.045) 09/12/19 03:12 Troponin I Cancelled 09/12/19 03:12 Triglycerides 225 mg/dL (<150) H 09/11/19 18:40 Cholesterol 204 mg/dL (<200) H 09/11/19 18:40 HDL Cholesterol 51 mg/dL (40-60) 09/11/19 18:40 Cholesterol/HDL Ratio 4.00 09/11/19 18:40 Home Medications: Levothyroxine [Synthroid*] 100 mcg PO [id number] 06/09/16 Aspirin [Aspirin EC 81 MG] 81 mg PO DAILY #30 tablet. 09/12/19 Diltiazem Tab [Cardizem Tab] 60 mg PO Q6HR #60 tab 09/12/19 New Medications: Aspirin [Aspirin EC 81 MG] 81 mg PO DAILY #30 tablet. Diltiazem Tab [Cardizem Tab] 60 mg PO Q6HR #60 tab Diet: [facility] Followup: Estrada Ham MD [ACTIVE - CAN ADMIT] - (Call to make an appointment. ) Time spent managing pt's care (in minutes): 35
[2019-09-12 12:40] LABS: CKMB Creatine Kinase MB < 1.0 ng/mL (0.3-3.6); Creatine Phosphokinase 63 U/L (26-192); Troponin I < 0.02 ng/mL (0.0-0.045)
[2019-09-12 13:09] VITALS: BP 140/80
--- NOTE | 2019-09-13 08:14 | ECHO ---
HEIGHT: 5 ft 6 in WEIGHT: 173 lb 0 oz DATE OF STUDY: 09/12/[address]: Mor Melendrez DO 2-DIMENSIONAL: YES M.MODE: YES DOPPLER: YES COLOR FLOW: YES TDS: NO PORTABLE: NO DEFINITY: NO BUBBLE STUDY: NO DIAGNOSIS: ATRIAL FBIRILLATION CARDIAC HISTORY: CATHERIZATION: NO SURGERY: NO PROSTHETIC VALVE: NO PACEMAKER: NO MEASUREMENTS (cm) DIASTOLIC (NORMALS) SYSTOLIC (NORMALS) IVSd 0.9 (0.6-1.2) LA Diam 3.6 (1.9-4.0) LVEF 62% LVIDd 4.5 (3.5-5.7) LVIDs 3.0 (2.0-3.5) %FS 33% LVPWd 0.8 (0.6-1.2) Ao Diam 2.7 (2.0-3.7) 2 DIMENSIONAL ASSESSMENT: RIGHT ATRIUM: NORMAL LEFT ATRIUM: NORMAL RIGHT VENTRICLE: NORMAL LEFT VENTRICLE: NORMAL TRICUSPID VALVE: NORMAL MITRAL VALVE: NORMAL PULMONIC VALVE: NORMAL AORTIC VALVE: NORMAL PERICARDIAL EFFUSION: NONE AORTIC ROOT: NORMAL LEFT VENTRICULAR WALL MOTION: NORMAL. DOPPLER/COLOR FLOW: MILD TRICUSPID REGURGITATION. COMMENTS: NORMAL LEFT VENTRICIULAR SIZE AND FUNCTION. NO WALL MOTION ABNORMALITY. NO EFFUSION. NORMAL LEFT ATRIAL SIZE. NO THROMBUS. TECHNOLOGIST: JEF BANDA
== END 2019-09-12 13:50 | disposition home or self-care (01) ==
LOC: ER 09:54 → ERHOLD 13:03 → 2ND 15:34
PROVIDERS: ADMIT Family Medicine; ATTEND Family Medicine
DX: I48.20 Chronic atrial fibrillation, unspecified (principal); I48.0 Paroxysmal atrial fibrillation; I10 Essential (primary) hypertension; E03.9 Hypothyroidism, unspecified; I07.1 Rheumatic tricuspid insufficiency; Z79.899 Other long term (current) drug therapy
CPT/HCPCS: 93005; 93306; 85025 ×2; 80048; 36415 ×2; 83735 ×2; 82550 ×3; 84100; 80061; 84443 ×2; 81003; 84484 ×4; 82553 ×3; 84439; 80053; 83880; 71045; 94760 ×3; 99285; G0378 ×3